=== PATIENT | male | born 1995 | race Caucasian/White ===

== ENCOUNTER 2017-04-24 19:13 | Emergency (ER) | payer BC ==
[~2017-04-24] VITALS: Ht 198.1 cm; Wt 87.4 kg
[2017-04-24 19:17] VITALS: TEMP 37.2; Ht 198.1 cm; Wt 87.4 kg
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
[2017-04-24] MEDS ORDERED: XYLOCAINE 1%/SOD BICARB 20 ML VIAL INFIL ONE (19:45)
[2017-04-24] MEDS ORDERED: CEPH500C PO (20:13)
[2017-04-24] MEDS ORDERED: CEPHALEXIN 500MG HOME PACK 1 EA BTL PO ONE (20:15)
[2017-04-24 20:33] VITALS: BP 122/76; PULSE 62; O2SAT 99
== END 2017-04-24 20:34 | disposition home or self-care (01) ==
LOC: C.EDB 19:15 → C.EDD 20:34
DX: S01.81XA Laceration without foreign body of other part of head, initial encounter (principal); Y09 Assault by unspecified means